=== PATIENT | male | born 1995 | race Caucasian/White ===

== ENCOUNTER 2022-09-20 19:11 | Emergency (ER) | payer SELFPAY ==
[2022-09-20 19:22] VITALS: BP 123/73; RESP 20; TEMP 98.1; BMI 29.9
[2022-09-20] MEDS ORDERED: diphenhydrAMINE HCL 25 MG CAPSULE (FP) PO ONE ×2 (20:03→20:17)
[2022-09-20] MEDS ORDERED: FAMOTIDINE 20 MG/50 ML IVPB 20 MG/50 ML MG IVPB ONE ×2 (20:03→20:07)
[2022-09-20] MEDS ORDERED: methylPREDNISolone NA SUCC 125 MG/2 ML VIAL IVPUSH ONE (20:03)
[2022-09-20] MEDS ORDERED: methylPREDNISolone NA SUCC 125 MG/2 ML VIAL ONE (20:07)
[2022-09-20 21:36] VITALS: PULSE 87
== END 2022-09-20 21:36 | disposition home or self-care (01) ==
LOC: JER 19:11
PROC: 3E033GC Introduction of Other Therapeutic Substance into Peripheral Vein, Percutaneous Approach (ICD-10-PCS; principal; 2022-09-20)
PROC: 3E033GC Introduction of Other Therapeutic Substance into Peripheral Vein, Percutaneous Approach (ICD-10-PCS; 2022-09-20)
DX: T78.40XA Allergy, unspecified, initial encounter (principal)
CPT/HCPCS: 99283-25